=== PATIENT | male | born 1955 | race Caucasian/White ===

== ENCOUNTER 2018-04-20 09:23 | Inpatient (IN) | payer OTHER ==
[2018-04-20] MEDS ORDERED: Morphine 4 MG/ML VIAL ONE (09:59)
[2018-04-20 10:40] LABS: #Basophils 0.1 thou/uL (0.0-0.2); #Lymphocytes 1.5 thou/uL (1.20-3.40); #Monocytes 0.8 thou/uL (0.11-0.59); #Neutrophils 12.8 thou/uL (1.40-6.50); %Basophils 0.4 % (0.0-1.0); %Eosinophils 0.2 % (0.0-10.0); %Lymphocytes 9.8 % (21.0-51.0); %Monocytes 5.3 % (0.0-10.0); %Neutrophils 84.3 % (42.0-75.0); Hemoglobin 15.6 g/dL (14.0-18.0); Mean Corpuscular HGB CONC 33.9 g/dL (32.0-36.0); Mean Corpuscular Volume 88.3 fL (78.0-98.0); Mean Platelet Volume 8.1 fL (7.4-10.4); Platelet Count 325 thou/uL (130-400); RBC Distribution Width 12.2 % (11.5-14.5); Red Blood Cell (RBC) Count 5.22 mill/uL (4.70-6.10); White Blood Cell (WBC) Count 15.2 thou/uL (4.8-10.8)
[2018-04-20 10:58] LABS: ALT (SGPT) 17 U/L (8-55); AST (SGOT) 23 U/L (5-34); Albumin 4.7 g/dL (3.4-4.8); Alkaline Phosphatase 65 U/L (40-150); Anion Gap 15 mmol/L (10-20); BUN (Urea Nitrogen) 13 mg/dL (8.4-25.7); Bilirubin, Total 1.1 mg/dL (0.2-1.2); Calc. Creatinine Clearance 0 mL/min (70-130); Calcium 9.5 mg/dL (7.8-10.44); Carbon Dioxide 26 mmol/L (23-31); Chloride 98 mmol/L (98-107); Estimated GFR-MDRD 90; Globulin 3.2 g/dL (2.4-3.5); Glucose 133 mg/dL (80-115); Lipase 11 U/L (8-78); Protein, Total 7.9 g/dL (5.8-8.1); Sodium 135 mmol/L (136-145); Troponin I Less than 0.010 ng/mL (< 0.028)
--- NOTE | 2018-04-20 12:04 | CT ---
CT ABDOMEN AND PELVIS WITH IV CONTRAST: History: Abdomen pain, especially for post prandial. FINDINGS: No comparison. Mild atelectasis at the lung bases. Gallbladder is distended up to 12.4 cm with subtle haziness of the gallbladder wall. No hyperdense stones are visible. There is prominent calcification throughout the arterial structures. The renal collecting systems and ureters are decompressed. Within nondilated calices of each kidney, small stones are present, measur ing up to 0.3 cm on the right and 0.3 cm on the left. IMPRESSION: 1. Given the gallbladder distention and right upper quadrant post prandial pain, acute cholecystitis must be considered. Clinical correlation regarding other signs and symptoms of acute cholecystitis is required. 2. Nonobstructing bilateral renal calculi. 3. Atherosclerosis. POS: [facility]
[2018-04-20] MEDS ORDERED: Piperacillin/Tazobactam 4.5 GM VIAL ONE (12:20)
[2018-04-20] MEDS ORDERED: Dextrose 5% in Water 1,000 ML IV PRN (13:34)
[2018-04-20] MEDS ORDERED: Dextrose 50% Abboject 50 ML SYRINGE SLOW IVP PRN (13:34)
[2018-04-20] MEDS ORDERED: hydrALAZINE 20 MG/ML VIAL SLOW IVP PRN (13:34)
[2018-04-20] MEDS ORDERED: Promethazine HCl 25 MG/ML VIAL IM PRN ×2 (13:34→22:47)
[2018-04-20] MEDS ORDERED: Ondansetron PF 4 MG/2 ML Vial IVP PRN (13:34)
[2018-04-20] MEDS ORDERED: Acetaminophen 325 MG TAB PO PRN (13:34)
[2018-04-20] MEDS ORDERED: Morphine 4 MG/ML VIAL SLOW IVP PRN ×2 (14:27→22:39)
--- NOTE | 2018-04-20 14:39 | ULT ---
SONOGRAM RIGHT UPPER QUADRANT: History: Right upper quadrant pain. Nausea. Vomiting. FINDINGS: Gallbladder is distended up to 12.1 cm and contains nonshadowing echogenic sludge. No gallbladder wal l thickening or pericholecystic fluid. Common duct is 0.5 cm. Liver is heterogeneous and echogenic. N o free fluid. IMPRESSION: 1. There is sludge within the dilated gallbladder lumen. Clinical correlation regarding other signs a nd symptoms of acute cholecystitis is required given the marked distention of the gallbladder up to 1 2 cm. 2. Hepatosteatosis. POS: [facility]
[2018-04-20 14:41] VITALS: BMI 28.7
[2018-04-20 14:42] LABS: Bilirubin Negative (Negative); Blood, Urine Negative (Negative); Clarity CLEAR (Clear); Glucose, Urine (Dipstick) Negative (Negative); Leukocyte Negative (Negative); Nitrite Negative (Negative); Protein, Urine (Dipstick) Negative (Neg-Trace); Urobilinogen 0.2 mg/dL (0.2-1.0)
[2018-04-20 14:48] LABS: Specific Gravity, Urine 1.052 (1.002-1.036)
[2018-04-20 14:57] LABS: Lactic Acid 2.8 mmol/L (0.5-2.2)
[2018-04-20] MEDS: Sodium Chloride 0.9% 1,000 ML IV SCH ×2 (15:32→23:45)
[2018-04-20] MEDS ORDERED: ISOVUE-370 76%-LOCM 1 ML ONE (16:40)
[2018-04-20] MEDS ORDERED: Morphine 2 MG/ML SYRINGE IM SCH (17:30)
[2018-04-20] MEDS ORDERED: Morphine 4 MG/ML VIAL IM SCH (17:45)
--- NOTE | 2018-04-20 18:20 | NM ---
NUCLEAR MEDICINE HEPATOBILIARY SCAN WITH EJECTION FRACTION 04/20/18 HISTORY: Right upper quadrant abdominal pain. Distended gallbladder on gallbladder ultrasound and CT. Patient was injected with 5.5 millicuries technetium 99m Mebrofenin intravenously. Prompt uptake of the tracer by the liver with emptying of contrast into the common duct and duodenum. The gallbladder did not fill after one hour. At this point, the patient was given 2 mg of Morphine in tramuscular and then given an additional 2.2 millicuries of technetium 99m Mebrofenin intravenously. Image were obtained after 30 minutes. There was no uptake noted within the gallbladder. IMPRESSION: Findings consistent with acute cholecystitis. There is no evidence of tracer entering the gallbladder . POS: [facility]
[2018-04-20] MEDS: Piperacillin/Tazobactam 3.375 GM in Sodium Chloride 0.9% 100 ML IVPB SCH ×2 (18:32→23:44)
[2018-04-20] MEDS: Ketorolac Tromethamine 30 MG/ML VIAL IVP SCH ×2 (18:32→23:26)
--- NOTE | 2018-04-20 18:49 | HP-2 ---
DATE OF ADMISSION: 04/20/2018 REASON FOR CONSULTATION: 1. Acute abdominal pain. 2. Concern for cholecystitis. PRIMARY CARE PHYSICIAN: Dr. Reynaga, [place]. REFERRED BY: The emergency department. SURGERY ATTENDING: Dr. Jhoan Edwards. HISTORY OF PRESENT ILLNESS: Mr. Nye is a 63-year-old male with a past medical history of hypertens ion or prediabetes, not currently on any medications, who presents to the emergency department today with a chief complaint of right side and right upper abdominal pain postprandially since yesterday. The patient says it was associated with nausea and vomiting. No diarrhea. He has had no fever. No previous episodes of the same. No chest pain, no shortness of breath and no preceding events. The p atient states that he ate pineapple last night and now has acute abdominal pain. In the emergency de partment, found to have a leukocytosis to 15,000 without a leftward shift. His LFTs are ultimately u nremarkable. However, a CT abdomen and pelvis shows a dilated gallbladder. Therefore, Surgery was c onsulted for possible admission and operative repair. Upon arrival to the emergency department, I have evaluated the patient at the bedside with his dedrick montes. The patient states that this is the first episode that he has had of abdominal pain in this nature. His pain is greatly controlled after 8 mg of morphine. He states that he is passing flatus and had a bowel movement yesterday. No blood in this. He has had no previous abdominal surgeries in the past. He has not had food since last night. He has no chest pain, no shortness of breath. Did endorse nausea and vomiting, but this has subsequently resided. He has had no fever. REVIEW OF SYSTEMS: Pertinent positive and negative per HPI, otherwise 12-point review of system is n egative. PAST MEDICAL HISTORY: 1. Hypertension. 2. Prediabetes. 3. TBI. MEDICATIONS: [facility] showed the patient was prescribed medications, bu t he states that he is not on any. ALLERGIES: No known drug allergies. PAST SURGICAL HISTORY: Denies. FAMILY HISTORY: Mom with obesity and diabetes. Father is alive and healthy with no medical pro blems. SOCIAL HISTORY: The patient is a former occasional smoker for 40 years, stopping 5 years ago. Socia lly drinks alcohol and the last was 2-3 days ago, but states it has been many years prior to this. Dionne cruz is currently , lives in [place] and works at [email or web address] business. DIAGNOSTIC DATA: Today: White blood cell count of 15,200, platelets of 325, hemoglobin and hematocr it 15.6 and 46.1 respectively with a neutrophil predominance 84.3%. Chemistry: Sodium is 135, potas sium 4.0, chloride is 98, CO2 is 26, BUN 13, creatinine 0.86, glucose 133. Lactate is 2.6, total maria eugenia irubin is 1.1, AST, ALT 23 and 17, alkaline phosphatase is 65. CK-MB is 9. Troponin is less than 0. 01. Total protein 7.9, albumin 4.7, lipase is 11. Abdomen and pelvis CT shows a distended gallbladd er without evidence of gallstones. He has nonobstructing bilateral renal calculi and atherosclerosis . PHYSICAL EXAMINATION: VITAL SIGNS: Blood pressure is 189/86, temperature is 98.2, heart rate is 90, respiratory rate is 19 . He is satting 95% on room air. GENERAL: A 63-year-old male sitting up in bed, in no acute distress. HEENT: Normocephalic, atraumatic. Trachea is midline. NECK: No JVD is appreciated. He has dry mucous membranes. LUNGS: Equal rise and fall. Bilateral breath sounds are clear to auscultation upper and lower bilat erally. CARDIOVASCULAR: Regular rate and rhythm. No murmurs appreciated. No edema. Strong pulses are appr eciated. ABDOMEN: Obese but is soft, generally nontender. Slight tenderness to the right side, but Page's sign is ultimately negative. No peritoneal signs. No guarding or rigidity is appreciated. PELVIS: Deferred. MUSCULOSKELETAL: Moves extremities well. No deformity. SKIN: Crum, warm and dry. PSYCHIATRIC: Normal mood and affect. NEUROLOGIC: Alert and oriented to person, place, time, and event. ASSESSMENT: 1. Acute abdominal pain. 2. Distended gallbladder, concern for acute cholecystitis. 3. Leukocytosis. 4. Hypertension needing better control without signs of end organ dysfunction. PLAN: 1. We will obtain a right upper quadrant ultrasound now for cholecystitis. May need nuclear medicin e imaging versus operative approach. 2. Continue antibiotics. 3. Continue fluid. 4. Make the patient n.p.o. 5. Pain control as needed. We will schedule Toradol and Tylenol for now. 6. Metoprolol 25 mg now and then b.i.d. 7. Repeat a CBC and CMP in the morning. 8. We will discuss the case with Dr. Edwards. I have updated the patient and advised that he may need operative approach to have further investigative diagnostics at this time. Diet will be n.p.o. exce pt for meds with sips of water. 9. Activity: Up with assistance. 10. FULL CODE. 11. Access: Peripheral IVs. 12. Prophylaxis. We will be famotidine and SCDs. Hold chemical DVT prophylaxis secondary to possib le operative procedure today. 13. Disposition will be surgery eubanks. I have updated the patient and patient's at the bedside and answered all questions. I have coordinate care with the emergency department physician and case will be discussed with Dr. Sachin roman and can be updated as needed.
[2018-04-20] MEDS ORDERED: Fentanyl 100 MCG/2 ML VIAL ONE ×2 (20:33→22:35)
[2018-04-20] MEDS ORDERED: Bupivacaine/Epinephrine 0.25% 30 ML VIAL ONE (20:35)
[2018-04-20] MEDS ORDERED: hydrALAZINE 20 MG/ML VIAL ONE (22:36)
[2018-04-20] MEDS ORDERED: traMADol HCl 50 MG TAB PO PRN ×2 (22:37)
[2018-04-20] MEDS ORDERED: Ondansetron ODT 4 MG TAB PO PRN (22:38)
[2018-04-20] MEDS ORDERED: Promethazine HCl 25 MG/ML VIAL SLOW IVP PRN (22:47)
[2018-04-20] MEDS ORDERED: Ondansetron HCl/PF 4 MG/2 ML Vial IVP PRN (22:47)
[2018-04-20] MEDS: Acetaminophen 500 MG TAB PO SCH (23:25)
[2018-04-20] MEDS: Famotidine 20 MG TAB PO SCH (23:31)
[2018-04-20] MEDS: Famotidine/PF 20 mg/2ml Vial SLOW IVP SCH (23:44)
[2018-04-21 04:25] LABS: #Lymphocytes 1.2 thou/uL (1.20-3.40); #Monocytes 0.3 thou/uL (0.11-0.59); #Neutrophils 8.7 thou/uL (1.40-6.50); %Basophils 0.3 % (0.0-1.0); %Eosinophils 0.1 % (0.0-10.0); %Lymphocytes 11.4 % (21.0-51.0); %Monocytes 2.5 % (0.0-10.0); %Neutrophils 85.8 % (42.0-75.0); Hemoglobin 13.6 g/dL (14.0-18.0); Mean Corpuscular HGB CONC 33.8 g/dL (32.0-36.0); Mean Corpuscular Volume 88.7 fL (78.0-98.0); Mean Platelet Volume 7.7 fL (7.4-10.4); Platelet Count 292 thou/uL (130-400); RBC Distribution Width 12.4 % (11.5-14.5); Red Blood Cell (RBC) Count 4.52 mill/uL (4.70-6.10); White Blood Cell (WBC) Count 10.1 thou/uL (4.8-10.8)
--- NOTE | 2018-04-21 04:48 | OP ---
DATE OF OPERATION: 04/20/2018 PREOPERATIVE DIAGNOSIS: Acute acalculous cholecystitis. POSTOPERATIVE DIAGNOSIS: Acute acalculous cholecystitis. PROCEDURES PERFORMED: Laparoscopic cholecystectomy. SURGEON: Jhoan Edwards D.O. ANESTHESIA: General endotracheal. ESTIMATED BLOOD LOSS: 50 mL. FLUIDS GIVEN: 1000 mL crystalloids. SPONGE AND INSTRUMENT COUNT: Certified as correct x2. COMPLICATIONS: None apparent at the time of operation. INDICATIONS FOR OPERATION: This is a 63-year-old man who presented with abdominal pain. C linical and radiographic examination was consistent with acute acalculous cholecystitis for which adam salazar was brought to the operating room for cholecystectomy. Findings are consistent with markedly di lated gallbladder completely encased by omental adhesions. Gallbladder itself was in the usual anato luciano location. DESCRIPTION OF OPERATION: Informed consent obtained from the patient who was brought to the operatin g room and placed in supine position. Following general anesthesia, abdomen was sterilely prepped an d draped in usual fashion. Skin below the umbilicus was infiltrated with 0.25% Marcaine with epineph rine. A small curvilinear infraumbilical incision was made using an 11 scalpel. Umbilical stalk gra sped with Arthur and elevated. Veress needle inserted through this incision and placed in the perito valorie cavity through which the abdomen was insufflated with 3 liters of CO2 gas. Intraabdominal press ure noted at 2 mmHg. Following abdominal insufflation, Veress needle was removed and a 5 mm trocar i nserted into the peritoneal cavity under laparoscopy using a Visiport. Laparoscopy confirmed proper placement of the port, no injuries to underlying structures. Additional laparoscopy reveals gallblad bisi in the usual anatomic location completely encased by omental adhesions. Under direct laparoscopy , a 12 mm epigastric and two 5 mm right lateral subcostal ports were placed after the overlying skin infiltrated with 0.25% Marcaine with epinephrine and appropriate incision was made. I introduced the [place] dissector with cautery through the epigastric port using this to take down omental adhesion s to reveal the fundus of the gallbladder. I introduced the Prestige grasper through the right later al subcostal port attempted to grasp the fundus of the gallbladder which was markedly distended and t ense. I used an Endo suction catheter with cautery to decompress the gallbladder at the fundus. Onc e the excess bile was evacuated from the gallbladder, Prestige grasper was applied at the fundus of t he gallbladder which was elevated cephalad. Omental adhesions were then carefully dissected free fro m the remainder of the gallbladder. The cystic duct was dissected free from surrounding structures at the triangle of Calot. The duct is divided between clips applying two clips proximally and one clip at the junction of the cystic duct and gallbladder. The cystic artery dissected free from surrounding structures and divided between cl ips in a similar fashion. Gallbladder itself was removed from the liver bed using cautery with good hemostasis. Gallbladder is delivered of the abdominal cavity using an EndoCatch. Operative site was copiously irrigated clear with saline solution noting good hemostasis in place. Finding no other pa thology, laparoscopy was terminated. Fascia of the epigastric port closed using 0 Vicryl suture and Endo Close device under laparoscopy. Abdomen was desufflated. All ports and instruments removed and accounted for. Skin incisions were closed using 4-0 Monocryl suture in subcuticular fashion. Gustavus pimentel was applied over the incisional closure. The patient tolerated the operation without any appare nt complication and was returned to the recovery room in a satisfactory condition.
[2018-04-21 04:58] LABS: ALT (SGPT) 28 U/L (8-55); AST (SGOT) 48 U/L (5-34); Alkaline Phosphatase 56 U/L (40-150); Anion Gap 10 mmol/L (10-20); BUN (Urea Nitrogen) 14 mg/dL (8.4-25.7); Bilirubin, Total 1.5 mg/dL (0.2-1.2); Calc. Creatinine Clearance 116 mL/min (70-130); Calcium 8.7 mg/dL (7.8-10.44); Carbon Dioxide 25 mmol/L (23-31); Chloride 106 mmol/L (98-107); Estimated GFR-MDRD 77; Globulin 2.5 g/dL (2.4-3.5); Glucose 138 mg/dL (80-115); Protein, Total 6.5 g/dL (5.8-8.1); Sodium 137 mmol/L (136-145)
[2018-04-21] MEDS: Ketorolac Tromethamine 30 MG/ML VIAL IVP SCH (05:37)
[2018-04-21] MEDS: Piperacillin/Tazobactam 3.375 GM in Sodium Chloride 0.9% 100 ML IVPB SCH (05:37)
[2018-04-21] MEDS: Acetaminophen 500 MG TAB PO SCH (05:38)
[2018-04-21 08:22] VITALS: BP 128/77; TEMP 98.1
[2018-04-21] MEDS: Sodium Chloride 0.9% 1,000 ML IV SCH (08:55)
[2018-04-21] MEDS: Famotidine/PF 20 mg/2ml Vial SLOW IVP SCH (08:56)
[2018-04-21] MEDS: Famotidine 20 MG TAB PO SCH (09:00)
[2018-04-21] MEDS ORDERED: Ibuprofen 600 MG TAB PO SCH (14:00)
--- NOTE | 2018-04-21 22:17 | DIS ---
DATE OF ADMISSION: 04/20/2018 DATE OF DISCHARGE: 04/21/2018 ADMISSION DIAGNOSES: 1. Acute cholecystitis. 2. Abdominal pain secondary to above. 3. Hypertension. DISCHARGE DIAGNOSES: 1. Acute cholecystitis. 2. Abdominal pain secondary to above. 3. Hypertension. CONSULTANTS: None. PROCEDURES: Laparoscopic cholecystectomy with Dr. Edwards on 04/20/2018. HOSPITAL COURSE: Lonnie Nye is a 63-year-old male who presented to [facility] with a chief complaint of abdominal pain. He was seen and evaluated and found to have acute acalculous c holecystitis. The patient was taken to the operating room for laparoscopic cholecystectomy on 2017. Postoperatively, the patient did well. He was ambulating independently. Pain was controlled via p.o. analgesics. He was tolerating a general diet. He was medically stable for discharge on the morning of 04/21/2018. DISCHARGE DISPOSITION: Home. DISCHARGE CONDITION: Good. PHYSICAL EXAMINATION: VITAL SIGNS: Temperature 98.1, pulse 74, respirations 20, O2 sat 93-95% on room air, blood pressure 128/77. GENERAL: Resting in bed in no acute distress. PULMONARY: Normal work of breathing, symmetric rise. CARDIOVASCULAR: Regular rate and rhythm. GASTROINTESTINAL: Abdomen is soft, appropriately tender. Laparoscopic sites are clean, dry, and int act. MUSCULOSKELETAL: Moves all extremities x4. NEUROLOGIC: No focal deficit noted. DISCHARGE INSTRUCTIONS: Discharge instructions were provided to the patient who vocalizes understand ing prior to discharge. He should keep his surgical sites clean and dry. He may shower and wash the m, but should not scrub them. No soaking in hot tubs or other bodies of water. He should not lift g reater than 20 pounds until cleared by surgical team. He may resume light duty as tolerated. DISCHARGE MEDICATIONS: The patient was discharged on [id number] Tylenol and ibuprofen. He may resume any home medications. Additionally, the patient was provided a prescription for Ultram 50 mg 1-2 tabs q.6 hours p.r.n. for [id number] breakthrough pain, #30. FOLLOWUP APPOINTMENTS: The patient is to follow up with his primary care provider for hypertension. He should follow up with Dr. Edwards in 2 weeks. This is merely a summary of the patient's hospitaliz ation. For more in depth information, please see his medical record in its entirety.
== END 2018-04-21 10:48 | disposition home or self-care (01) | DRG 419 ==
LOC: ERS 09:23 → SURG A 13:52
PROVIDERS: ADMIT Surgery; ATTEND Surgery
PROC: 0FT44ZZ Resection of Gallbladder, Percutaneous Endoscopic Approach (ICD-10-PCS; principal; 2018-04-20)
DX: K81.0 Acute cholecystitis (principal); I10 Essential (primary) hypertension
CPT/HCPCS: 36415; 74177; 76705; 78227; 80053; 81003; 82553; 83605; 83690; 84484; 85025; 86850; 86900; 86901; 87040; 87086; 88304; 93005; 96361; 96365; 96375; A9537; J0131; J0360; J1885; J2270; J2543; J3010; J7050; S0028

== ENCOUNTER 2020-09-03 19:16 | Emergency (ER) | payer OTHER ==
[2020-09-03] MEDS ORDERED: Morphine 4 MG/ML VIAL ONE (20:23)
== END 2020-09-03 21:12 | disposition home or self-care (01) ==
LOC: ERS 19:16
DX: S52.572A Other intraarticular fracture of lower end of left radius, initial encounter for closed fracture (principal); S52.615A Nondisplaced fracture of left ulna styloid process, initial encounter for closed fracture; I10 Essential (primary) hypertension; W11.XXXA Fall on and from ladder, initial encounter
CPT/HCPCS: 29125; 96372; J2270

== ENCOUNTER 2022-08-11 15:59 | Emergency (ER) | payer OTHER | END 2022-08-11 17:32 | disposition home or self-care (01) | LOC: ERS 15:59 | DX: M16.12 Unilateral primary osteoarthritis, left hip (principal) | CPT/HCPCS: 72170 ==